=== PATIENT | male | born 1970 | race Caucasian/White ===

== ENCOUNTER 2017-09-17 09:06 | Emergency (ER) | payer OTHER ==
[2017-09-17] MEDS: ONDANSETRON (ODT) 4 MG TAB ODT (14:25)
[2017-09-17] MEDS: HYDROCODONE/APAP (10/325) TAB PO (14:25)
== END 2017-09-17 14:32 | disposition home or self-care (01) ==
LOC: FTE 09:06
DX: M54.2 Cervicalgia (principal); R07.2 Precordial pain; Z87.891 Personal history of nicotine dependence
CPT/HCPCS: 71045; 71120; 72125; 99284-25